=== PATIENT | male | born 1990 | race Two or more races ===

== ENCOUNTER → 2021-02-19 12:30 | Outpatient (BNVA) | payer OTHER, SELFPAY | PROVIDERS: PCP Internal Medicine; Visit Provider Physician Assistant ==

== ENCOUNTER 2021-03-14 14:22 | Outpatient (REF) | payer OTHER, SELFPAY ==
[2021-03-15 14:57] LABS: H Pylori Breath Test NOT DETECTED (NOT DETECTED)
== END 2021-03-14 14:23 | disposition home or self-care (01) ==
LOC: HO.LNP 14:22
PROVIDERS: PCP Internal Medicine; Referring Provider Internal Medicine; Visit Provider Physician Assistant
DX: E66.01 Morbid (severe) obesity due to excess calories (principal); Z11.0 Encounter for screening for intestinal infectious diseases; Z71.3 Dietary counseling and surveillance; Z68.42 Body mass index [BMI] 45.0-49.9, adult
CPT/HCPCS: 83013

== ENCOUNTER 2021-03-24 10:39 | Outpatient (REF) | payer OTHER, SELFPAY ==
--- NOTE | ~2021-03-24 | XR_ITS ---
EXAMINATION: XR CHEST CLINICAL INFORMATION: Severe morbid obesity COMPARISON: None TECHNIQUE: 2 views of the chest were obtained. FINDINGS: No significant abnormality is noted involving the heart, lungs, mediastinum, bony thorax or soft tissues. XR/XR chest 2V IMPRESSION: No acute disease.
--- NOTE | 2021-03-24 10:46 | ECG_ITS ---
Test Reason : MORBID OBESITY Blood Pressure : / mmHG Vent. Rate : 053 BPM Atrial Rate : 053 BPM P-R Int : 156 ms QRS Dur : 116 ms QT Int : 434 ms P-R-T Axes : 039 027 039 degrees QTc Int : 407 ms Sinus bradycardia with sinus arrhythmia Otherwise normal ECG No previous ECGs available Referred By: Patricia Reynolds Electronically Signed By:SUSY MONTERO MD
[2021-03-24 11:23] LABS: MANUAL DIFF FLAG NO
[2021-03-24 11:29] LABS: Basophils Absolute Auto 0.1 X10*3/uL (0.0-0.2); Basophils Percent Auto 0.8 % (0-2); Eosinophils Absolute Auto 0.2 X10*3/uL (0.0-0.4); Eosinophils Percent Auto 2.9 % (0-4); Hematocrit 47.3 % (42-52); Imm Gran Abs Auto 0.02 X10*3/uL (0.00-0.03); Imm Gran Pct Auto 0.3 % (0.0-0.4); Lymphocytes Absolute Auto 2.5 X10*3/uL (1.2-4.9); Lymphocytes Percent Auto 38.5 % (20-40); Mean Corpuscular HGB Conc 31.7 g/dl (31.0-36.0); Mean Corpuscular Hemoglobin 27.5 pg (27.0-33.0); Mean Corpuscular Volume 86.6 fL (80-98); Mean Platelet Volume 10.7 fL (9.4-12.4); Monocytes Absolute Auto 0.4 X10*3/uL (0.1-1.2); Monocytes Percent Auto 6.3 % (2-11); Neutrophils Absolute Auto 3.4 X10*3/uL (2.0-8.3); Neutrophils Percent Auto 51.2 % (45-73); Platelet Count 246 X10*3/uL (160-400); Red Blood Count 5.46 X10*6/uL (4.60-5.80); Red Cell Distribution Width 13.3 % (11.0-16.0); White Blood Count 6.5 X10*3/uL (4.8-10.8)
[2021-03-24 12:03] LABS: Alanine Aminotransferase 100 U/L (0-40); Albumin Level 4.8 g/dL (3.5-5.0); Alkaline Phosphatase 51 U/L (39-117); Anion Gap 10 (12-20); Aspartate Amino Transferase 56 U/L (5-37); Blood Urea Nitrogen 14 mg/dL (9-16); C Reactive Protein 0.13 mg/dL (< or = 0.50); Calcium 9.9 mg/dL (8.4-10.2); Carbon Dioxide 30 mmol/L (22-29); Chloride 107 mmol/L (96-108); Cholesterol 166 mg/dL; Estimated Glomerular Filt Rate > 60; Glucose Random 100 mg/dL (60-115); HDL Cholesterol 44 mg/dL; Iron 90 mcg/dL (45-160); LDL Cholesterol Calculated 99 mg/dl; Percent Iron Saturation 24 % (15-50); Potassium 4.6 mmol/L (3.3-5.1); Sodium 142 mmol/L (135-145); Total Iron Binding Capacity 371 mcg/dL (228-428); Total Protein 7.6 g/dL (6.5-8.0); Triglycerides 116 mg/dL; Unsaturated Iron Binding 281 ug/dL
[2021-03-24 12:08] LABS: Ferritin 217 ng/mL (20-250); TSH reflex Free T4 0.94 uIU/mL (0.32-4.0); Vitamin D 25-OH Total 16.4 ng/mL (>30)
[2021-03-24 12:17] LABS: Folate 10.4 ng/mL (> or = 4.0); Vitamin B12 250 pg/mL (200-900)
[2021-03-25 13:16] LABS: Calcium (PTHI) 10.2 mg/dL (8.6-10.3); PTHI 45 pg/mL (14-64)
[2021-03-25 21:26] LABS: Insulin Level Total 15.8 uIU/mL
[2021-03-26 16:56] LABS: Zinc 71 mcg/dL (60-130)
[2021-03-27 21:47] LABS: Vitamin A 51 mcg/dL (38-98)
[2021-03-28 12:46] LABS: Vitamin B1 9 nmol/L (8-30)
== END 2021-03-24 10:40 | disposition home or self-care (01) ==
LOC: HO.XRAY 10:39
PROVIDERS: PCP Internal Medicine; Visit Provider Physician Assistant
DX: E66.01 Morbid (severe) obesity due to excess calories (principal)
CPT/HCPCS: 36415; 71046; 80053; 80061; 82306; 82607; 82728; 82746; 83525; 83540; 83970; 84425; 84443; 84590; 84630; 85025; 86140; 93005

== ENCOUNTER 2021-04-10 09:23 | Outpatient (REF) | payer OTHER, SELFPAY ==
--- NOTE | ~2021-04-10 | US_ITS ---
EXAMINATION: US COMPLETE ABDOMEN WITH LIVER ELASTOGRAPHY CLINICAL INFORMATION: Moderate/severe obesity due to excess calories. COMPARISON: None. TECHNIQUE: Real-time imaging of the abdominal viscera. Noninvasive ultrasound liver fibrosis assessment is performed using Denilson ElastPQ point quantification shear wave elastography (pSWE) with a C5-2 MHz transducer. Multiple elastography samples are obtained. FINDINGS: PANCREAS: The visualized pancreatic head and body are normal in appearance. The remainder of the pancreas is obscured from visualization by the overlying bowel gas. ABDOMINAL AORTA: The proximal, middle, and distal aortic segments are normal in caliber. INFERIOR VENA CAVA: Visualized portions are normal. LIVER: Normal. The liver demonstrates normal size, contour and increased echogenicity. No focal lesion or intrahepatic biliary duct dilatation. The right lobe measures 17.7 cm in length. The left lobe measures 13.5 cm in length. Portal flow is hepatopedal. Shear wave liver elastography median stiffness is 1.60 m/s (reference: normal median stiffness is 1.3 m/s or less). IQR/median stiffness to assess sampling precision is 0.08 (reference: good quality data set is IQR/median stiffness of 0.15 or less). GALLBLADDER: Normal. The gallbladder is physiologically distended without evidence of stones, sludge, polyps, wall thickening or pericholecystic fluid. COMMON BILE DUCT: Normal in caliber measuring 0.3 cm in diameter. RIGHT KIDNEY: Normal. No hydronephrosis. No renal calculi or focal parenchymal lesions. The kidney measures 12.2 cm in maximum dimension. LEFT KIDNEY: Normal. No hydronephrosis. No renal calculi or focal parenchymal lesions. The kidney measures 12.3 cm in maximum dimension. SPLEEN: Normal. The spleen measures 13.6 cm in maximum dimension. FREE FLUID: None. US/US abdomen comp w elastography IMPRESSION: 1. Mild hepatic steatosis without focal lesion. The rest of the abdominal ultrasound is unremarkable. 2. Liver elastography: Mediastinitis 1.60 suggestive of cACLD ruled out. REFERENCE: Society of Radiologists in Ultrasound Liver Stiffness Thresholds (2019): LIVER STIFFNESS THRESHOLDS: *Liver Stiffness equal or less than 1.3 m/s: High probability of being normal. *Liver Stiffness less than 1.7 m/s: In the absence of other known clinical signs, rules out compensated advanced chronic liver disease. *Liver Stiffness 1.7-2.1 m/s: Suggestive of compensated advanced chronic liver disease but need further test for confirmation. *Liver Stiffness over 2.1 m/s: Rules in compensated advanced chronic liver disease. *Liver Stiffness over 2.4 m/s: Suggestive of clinically significant portal hypertension. QUALITY OF DATA SET: *IQR/Median value equal or less than 0.15 implies a quality data set. *IQR/Median value over 0.15 implies a poor quality data set. SIGNIFICANT CHANGE FROM PRIOR EXAM: Significant change if liver stiffness measurement is 10% or greater from prior exam. OTHER CONSIDERATIONS: The stage of liver fibrosis may be overestimated in the setting of acute hepatitis, liver inflammation, elevated liver function tests, hepatic vascular congestion, obstructive cholestasis, non-fasting state, and infiltrative diseases such as amyloidosis and lymphoma. In some patients with NAFLD, the liver stiffness thresholds for compensated advanced chronic liver disease may be lower. In causes other than viral hepatitis and NAFLD, liver stiffness thresholds are not well established.
--- NOTE | ~2021-04-10 | FL_ITS ---
EXAMINATION: XR GI SERIES CLINICAL INFORMATION: Morbid/severe obesity due to excess calories. COMPARISON: None. TECHNIQUE: Routine upper GI air-contrast study was performed upright and lying position. FINDINGS: Following oral administration of thick barium and effervescent granules, there is normal propagation of bolus from the oral cavity through the pharynx and esophagus and into the stomach without any evidence of obstruction, narrowing or stricture. On placing patient supine and prone, the course, caliber and peristalsis of the stomach, duodenal bulb and duodenal sweep are normal. No gastroesophageal reflux or hiatal hernia seen. FLUOROSCOPY TIME: 1.9 minutes. DOSE AREA PRODUCT: 62.0 uGy-m2 (microgray-meter squared). FL/FL upper GI series IMPRESSION: Unremarkable upper GI air-contrast study.
== END 2021-04-10 09:24 | disposition home or self-care (01) ==
LOC: HO.US 09:23
PROVIDERS: PCP Internal Medicine; Visit Provider Surgery
DX: Z01.818 Encounter for other preprocedural examination (principal); E66.01 Morbid (severe) obesity due to excess calories; K21.9 Gastro-esophageal reflux disease without esophagitis
CPT/HCPCS: 74240; 76705; 76981

== ENCOUNTER → 2021-04-16 07:23 | Outpatient (BNVA) | payer OTHER, SELFPAY | PROVIDERS: PCP Internal Medicine; Visit Provider Surgery ==

== ENCOUNTER → 2021-04-25 07:48 | Outpatient (BNVA) | payer OTHER, SELFPAY | PROVIDERS: PCP Internal Medicine; Visit Provider Dietitian, Registered | DX: E66.9 Obesity, unspecified (principal); Z68.42 Body mass index [BMI] 45.0-49.9, adult | CPT/HCPCS: 97802 ==

== ENCOUNTER → 2021-05-28 07:20 | Outpatient (BNVA) | payer OTHER, SELFPAY | PROVIDERS: PCP Internal Medicine; Visit Provider Surgery ==

== ENCOUNTER → 2021-06-10 08:17 | Outpatient (BNVA) | payer OTHER, SELFPAY | PROVIDERS: PCP Internal Medicine; Referring Provider Internal Medicine; Visit Provider Dietitian, Registered | DX: E66.01 Morbid (severe) obesity due to excess calories (principal); Z68.42 Body mass index [BMI] 45.0-49.9, adult | CPT/HCPCS: 97803 ==

== ENCOUNTER → 2021-07-25 08:19 | Outpatient (BNVA) | payer OTHER, SELFPAY | PROVIDERS: PCP Internal Medicine; Visit Provider Surgery ==

== ENCOUNTER 2022-08-18 09:35 | Inpatient (IN) | payer BC, SELFPAY ==
[2022-08-12 13:30] VITALS: BMI 45.8
[2022-08-14 15:50] LABS: MANUAL DIFF FLAG NO
[2022-08-14 16:49] LABS: Basophils Percent Auto 0.3 % (0-2); Eosinophils Absolute Auto 0.1 X10*3/uL (0.0-0.4); Eosinophils Percent Auto 0.8 % (0-4); Hematocrit 42.2 % (42.0-52.0); Hemoglobin 13.7 g/dl (14.0-18.0); Imm Gran Abs Auto 0.03 X10*3/uL (0.00-0.03); Imm Gran Pct Auto 0.3 % (0.0-0.4); Lymphocytes Absolute Auto 3.4 X10*3/uL (1.2-4.9); Lymphocytes Percent Auto 38.1 % (20-40); Mean Corpuscular HGB Conc 32.5 g/dl (31.0-36.0); Mean Corpuscular Hemoglobin 28.2 pg (27.0-33.0); Mean Platelet Volume 11.3 fL (9.4-12.4); Monocytes Absolute Auto 0.6 X10*3/uL (0.1-1.2); Monocytes Percent Auto 6.7 % (2-11); Neutrophils Absolute Auto 4.7 x10*3/uL (2.0-8.3); Neutrophils Percent Auto 53.8 % (45-73); Platelet Count 247 X10*3/uL (160-400); Red Blood Count 4.85 X10*6/uL (4.60-5.80); Red Cell Distribution Width 13.5 % (11.0-16.0); White Blood Count 8.8 X10*3/uL (4.8-10.8)
[2022-08-14 16:55] LABS: Estimated Average Glucose 103 mg/dL; Hemoglobin A1c % 5.2 %
[2022-08-14 17:01] LABS: INTERNATIONAL NORM RATIO 1.1 (0.9-1.1); Prothrombin Time 13.2 SEC (10.0-13.1)
[2022-08-14 17:04] LABS: Partial Thromboplastin Time 40.9 SEC (26.0-36.4)
[2022-08-14 17:54] LABS: Alanine Aminotransferase 101 U/L (0-40); Albumin Level 4.9 g/dL (3.5-5.0); Alkaline Phosphatase 57 U/L (39-117); Anion Gap 17 (12-20); Aspartate Amino Transferase 81 U/L (5-37); Bilirubin Total 1.8 mg/dL (0.0-1.0); Blood Urea Nitrogen 15 mg/dL (9-16); C Reactive Protein 0.39 mg/dL (< or = 0.50); Carbon Dioxide 25 mmol/L (22-29); Chloride 103 mmol/L (96-108); Cholesterol 163 mg/dL; Creatinine Clr Calc Pharmacy 174.7; Estimated Glomerular Filt Rate > 60; Glucose Random 74 mg/dL (60-115); HDL Cholesterol 49 mg/dL; Insulin 8 uU/mL (2-29); LDL Cholesterol Calculated 101 mg/dl; Potassium 4.4 mmol/L (3.3-5.1); Sodium 141 mmol/L (135-145); TSH reflex Free T4 1.65 uIU/mL (0.32-4.0); Total Protein 7.8 g/dL (6.5-8.0); Triglycerides 69 mg/dL
--- NOTE | 2022-08-15 14:28 | P.HPSUR_ITS ---
Pre-Procedural Eval Section A Date of Service: 08/15/22 The patient is an INPATIENT: Yes The History & Physical has been completed within 30 days and I have reviewed it.: Yes Section B Chief Complaint: Morbid (severe) obesity due to excess calories Relevant Family History (Specify if Yes): No Relevant Social History: None Present Medications: None Medical History: No relevant PMH History of Previous Operations: No relevant previous surgery Allergies: Allergies Allergy/AdvReac Type Severity Reaction Status Date / Time No Known Allergies Allergy Verified 08/12/22 11:56 Review of Systems Sugical H&P ROS: Negative: Constitution, Cardiovascular, Respiratory, Neurological, Psychiatric, Hem-Onc, Allergic/Immunologic, Gastrointestinal, Genitourinary, Musculoskeletal, Integumentary, Endocrine and Eyes/Ears/No se/Throat Exam Surgical H&P Exam: Normal: HEENT, Normal: Heart, Normal: Lungs, Normal: Extremities, Normal: Abdomen, Normal: Skin and Normal: Neurological Plan Diagnosis/Plan: Unchanged I have reviewed the history and physical and performed a pertinent physical examination on my patient. No changes have occurred unless specified.
--- NOTE | 2022-08-17 09:48 | HO.ANESPROP2 ---
Documented by User: Shyann Brenner NP 08/17/22 09:49 HPI - Anesthesia Eval Consult details Narrative: 32yo M for Gastrectomy Sleeve,EGD,Possible diaphragmatic hernia,Possible ventral hernia,possible open PMFSH Active Problems Active Problems: All Active Problems (Updated 08/12/22 @ 13:19 by Marisabel Ramos RN) Morbid obesity (Acute) Adjustment disorder, unspecified (Acute) Vitamin B 12 deficiency (Acute) Vitamin D deficiency (Acute) Past Medical History Medical History History of snoring Obese Family History Family History Mother No problems noted. Father No problems noted. Brother No problems noted. Daughter Asthma Daughter No problems noted. Surgical History Surgical History No history of previous surgery Social History Social History Are you a primary healthcare administrative assistant to a significant other at home: No Do you presently have visiting nurse or other home services: No Alcohol intake: current Alcohol intake frequency: a few times a month Patient Tobacco Use Status: Never used Tobacco Second Hand Smoke Exposure: No Use of substances other than those prescribed or required for medical reasons: No Have you been hit, kicked, punched, or otherwise hurt by someone within the past year? If so, by whom?: No Are you DNR?: No Advance Directives: No Advance Directives Information Provided: Yes (Mailed w/ pre op instructions) Advance Directives on File: No Recently lost weight without trying: No How much weight loss: 24-33 pounds Eating poorly because of decreased appetite: No Nutrition screen score: 3 Nutrition Risks: No Nutritional Risk Poor oral hygiene: No (Intact teeth) Meds Allergies Allergy/AdvReac Type Severity Reaction Status Date / Time No Known Allergies Allergy Verified 08/18/22 09:36 Exam Exam Date and Time: August 17, 2022 0948 Height,Weight and Vital Signs: Height 6 ft 0.5 in Weight 155.299 kg Pertinent Lab Results Pertinent Lab Results: Laboratory Tests 08/14/22 08/14/22 08/14/22 15:45 15:49 15:49 WBC 8.8 RBC 4.85 Hgb 13.7 L Hct 42.2 MCV 87.0 MCH 28.2 MCHC 32.5 RDW 13.5 Plt Count 247 MPV 11.3 Immature Gran % (Auto) 0.3 Neut % (Auto) 53.8 Lymph % (Auto) 38.1 [place] % (Auto) 6.7 Eos % (Auto) 0.8 Baso % (Auto) 0.3 Lymph # (Auto) 3.4 [place] # (Auto) 0.6 Eos # (Auto) 0.1 Baso # (Auto) 0.0 Abs Immat Gran (auto) 0.03 Absolute Neuts (auto) 4.7 Absolute Nucleated RBC 0.000 Nucleated RBC % (auto) 0.0 PT 13.2 H INR 1.1 APTT 40.9 H Sodium Potassium Chloride Carbon Dioxide Anion Gap BUN Creatinine Estim Creat Clear Calc Estimated GFR Random Glucose Estimat Average Glucose Hemoglobin A1c % Insulin Level Calcium Total Bilirubin AST ALT Alkaline Phosphatase C-Reactive Protein Total Protein Albumin Triglycerides Cholesterol LDL Cholesterol, Calc HDL Cholesterol TSH Blood Type O Positive Antibody Screen NEGATIVE 08/14/22 08/14/22 15:49 15:49 WBC RBC Hgb Hct MCV MCH MCHC RDW Plt Count MPV Immature Gran % (Auto) Neut % (Auto) Lymph % (Auto) [place] % (Auto) Eos % (Auto) Baso % (Auto) Lymph # (Auto) [place] # (Auto) Eos # (Auto) Baso # (Auto) Abs Immat Gran (auto) Absolute Neuts (auto) Absolute Nucleated RBC Nucleated RBC % (auto) PT INR APTT Sodium 141 Potassium 4.4 Chloride 103 Carbon Dioxide 25 Anion Gap 17 BUN 15 Creatinine 0.95 Estim Creat Clear Calc 174.7 Estimated GFR > 60 Random Glucose 74 Estimat Average Glucose 103 Hemoglobin A1c % 5.2 Insulin Level 8 Calcium 10.0 Total Bilirubin 1.8 H AST 81 H ALT 101 H Alkaline Phosphatase 57 C-Reactive Protein 0.39 Total Protein 7.8 Albumin 4.9 Triglycerides 69 Cholesterol 163 LDL Cholesterol, Calc 101 HDL Cholesterol 49 TSH 1.65 Blood Type Antibody Screen Narrative Narrative: EKG 02/2021 Vent. Rate : 053 BPM ? ? Atrial Rate : 053 BPM ?? P-R Int : 156 ms? QRS Dur : 116 ms ? ? QT Int : 434 ms ? ? ? P-R-T Axes : 039 027 039 degrees ?? QTc Int : 407 ms ? Sinus bradycardia with sinus arrhythmia Otherwise normal ECG No previous ECGs available Assessment and Plan Assessment Anesthesia Assessment: Chart Reviewed Documented by User: Albina Hannah MD 08/18/22 10:40 [facility] Past Medical History Medical History History of snoring Obese Family History Family History Mother No problems noted. Father No problems noted. Brother No problems noted. Daughter Asthma Daughter No problems noted. Surgical History Surgical History No history of previous surgery History of Problems with Anesthesia: No Social History Social History Are you a primary healthcare administrative assistant to a significant other at home: No Do you presently have visiting nurse or other home services: No Alcohol intake: current Alcohol intake frequency: a few times a month Patient Tobacco Use Status: Never used Tobacco Second Hand Smoke Exposure: No Use of substances other than those prescribed or required for medical reasons: No Have you been hit, kicked, punched, or otherwise hurt by someone within the past year? If so, by whom?: No Are you DNR?: No Advance Directives: No Advance Directives Information Provided: Yes (Mailed w/ pre op instructions) Advance Directives on File: No Recently lost weight without trying: No How much weight loss: 24-33 pounds Eating poorly because of decreased appetite: No Nutrition screen score: 3 Nutrition Risks: No Nutritional Risk Poor oral hygiene: No (Intact teeth) Meds Allergies Allergy/AdvReac Type Severity Reaction Status Date / Time No Known Allergies Allergy Verified 08/18/22 09:36 Exam Airway Mallampati Class: III TM Dist: >3cm Neck ROM: Full Loose/Missing/Broken Teeth: No Heart: RRR Lungs: CTA Assessment and Plan Final Anesthetic Review History of Problems with Anesthesia: No NPO: Yes ASA Class: III Final Preanesthetic Review: Meds/Allgs Chart Reviewed, Consent Obtained/Reviewed and Anes Risks/Benef Reviewed Patient Risk: Intermediate Procedure Risk: Intermediate Anesthetic Plan Anesthetic Plan: GA Disposition: Standard PACU
[2022-08-17 13:16] LABS: COVID-19 Test Negative (Negative); IDNOW Serial# BCCEAD1C
[2022-08-18] VITALS (15 sets, daily range): BP systolic 118–157; BP diastolic 62–87; PULSE 50–75; RESP 16–20; TEMP 36.2–37.3; O2SAT 94–100
--- OUTSIDE RECORDS SUMMARY | 2022-08-18 09:44 | XMS_ITS ---
:1990 Author Care Team Providers Name Role Phone MCKENNA WALKER MD Primary Care Provider [phone] Allergies Code Code System Name Reaction Severity Status Onset NKDA ? Medications Name Status Start Date Stop Date ? ? vitamin B complex and vit C no.3 15 mg-10 mg-50 mg-5 mg-300 mg c apsule Active ? Not available Take by oral route. Vitamin D Active ? Not available Problems None recorded. Procedures None recorded. Results Lab Results Date Name Specimen Result Interpretation Description Value Range Status Address ? 09/07/2021 Urinalysis, ? Color yellow ? ? [place] [facility] [place] [address], [place] ? ? ? Appearance clear ? ? [place] [facility] [place] [address], [place] ? ? ? Glucose Negative ? ? Byst U [place]: [address], [place] ? ? ? Bilirubin Negative ? ? [place] [facility] [place] [address], [place] ? ? ? Specific 1.030 ? ? Byst [place] : [address], [place] ? ? ? Blood Hemolyzed ? ? Byst c Trace [place]: [address], [place] ? ? ? Ketone Negative ? ? Byst [facility] [place]: [address], [place] ? ? ? Ph 6.0 ? ? [place] [facility] [place] [address], [place] ? ? ? Protein Negative ? ? Byst U [place]: [address], [place] ? ? ? Urobilinogen 0.2-Normal ? ? [place] [facility] [place] [address], [place] ? ? ? Nitrite negative ? ? Byst U [place]: [address], [place] ? ? ? Leukocytes Negative ? ? [place] [facility] [place] [address], [place] 09/07/2021 Visual Acuity* ? R Eye Corrected 20/20 ? ? [place] [facility] [place] [address], [place] ? ? ? L Eye Corrected 20/25 ? ? [place] [facility] [place] [address], [place] ? ? ? Both Eyes 20/15 ? ? 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 Social History Tobacco Smoking Status Never Smoker Vaccine List Vaccine Type COVID-19, mRNA, LNP-S, PF, 30 mcg/0.3 mL dose ([place]) 02/13/2021 03/08/2021 DTaP 1992 1992 1992 01/09/1994 09/10/1997 Hep B, adolescent or pediatric 1992 1992 06/11/1993 Hep B, unspecified formulation 03/27/2017 Hib (HbOC) 1992 1992 1992 09/10/1993 influenza, live, intranasal 07/06/2007 influenza, seasonal, injectable 07/08/2009 07/07/2010 06/02/2011 meningococcal MCV4P 01/25/2008 MMR 09/10/1993 09/10/1997 03/27/2017 novel [id number], preservative-fr ee 09/18/2009 OPV 1992 1992 01/09/1994 09/10/1997 Td (adult), adsorbed 06/01/2003 Tdap 04/10/2009 varicella 06/11/1996 04/22/2010 Plan of Care Reminders Provider Appointments None recorded. ? ? Lab None recorded. ? ? Referral None recorded. ? ? Procedures None recorded. ? ? Surgeries None recorded. ? ? Imaging None recorded. ? ? Vitals Height Weight BMI Blood Pressure 6 ft 3 in 347 lbs 16 oz 43.5 kg/m2 122/87 mm[Hg]
[2022-08-18] MEDS: Lactated Ringers 1,000 ML 100 ML IVCONT ×3 (09:56→23:42)
[2022-08-18] MEDS: Lactated Ringers 1,000 ML 999 ML IV (09:56)
--- NOTE | 2022-08-18 10:25 | P.BOP_ITS ---
Brief Operative Note Date of Service: 08/18/22 Pre-op diagnosis: Morbid obesity with comorbidities (see below) Post-op diagnosis: same Procedure: INITIAL PATIENT BMI ON PRESENTATION AT OUR OFFICE: 45.9 kg/m2 LAST BMI BEFORE SURGERY: 44.4 kg/m2 COMORBIDITIES: liver steatosis, liver fibrosis ?The patient presented to the Weight Management Program with significant obesity that was negatively impacting the patient's comorbidities as listed above.? The program is a phased program with a special focus on preoperative medical weight management to promote substantial weight loss and prepare the patients for the second phase of the program: bariatric surgery. The patient participated in an intensive weekly lifestyle ?intervention and exercise program during which the patient ?has lost between the initial office visit and the last preoperative visit 24.6lbs, or 6.7% of initial actual body weight. It was deemed appropriate for the patient to now have bariatric surgery. In light of the current Covid-19 pandemic and the well documented strong association of obesity and increased risk of worse outcomes if infected with Covid-19 (REFERENCES: https://pubmed.ncbi.nlm.nih.gov/83585850/ ,? https://pubmed.ncb i.nlm.nih.gov/77263827/ ), any delay in undergoing bariatric surgery may lead to the patient's worsening health condition and increased?risk of more severe Covid-19 disease if infected. In addition a recent?study from [facility] published in [employer] on 09/22/2021 ([email or web address]) found that, among patients with obesity, substantial weight loss achieved with surgery was associated with improved outcomes of COVID-19 infection. The findings suggest that obesity can be a modifiable risk factor for the severity of COVID-19 infection. In addition, the patient met the BMI-criteria for bariatric surgery based on the BMI on initial presentation. The patient should not be penalized for achieving such weight loss because ?it is not sustainable long-term without surgical intervention and it was achieved in preparation for bariatric surgery ?under my direction and based on my published research (file :///[email or web address]:/[email or web address]).pdf and? https://www.soard.org/article/[email or web address](87)60923-X/pdf ) ?that a 10% preoperative weight loss improves long-term weight loss after surgery and reduces perioperative complications.? Insurance carriers such as [facility] have endorsed my recommendations ?and have included in their policies criteria to include a 10% preoperative weight loss requirement. PROCEDURE: Esophago-gastroscopy,, laparoscopic sleeve gastrectomy and laparoscopic gastropexy INDICATIONS: This is a 32 year-old male who was electively scheduled for l aparoscopic, possibly open sleeve gastrectomy. The risks and complications of the procedure were discussed with the patient in advance, particularly the possibility of ; pulmonary embolism; staple line leak; bleeding; GERD; cardiac, pulmonary, or renal complications; as well as long-term problems such as insufficient weight loss, vitamin deficiency, strictures, or ulcers. The patient understood all the risks, and was in agreement to proceed with surgery. DESCRIPTION OF PROCEDURE: After informed consent was obtained from the patient, the patient was given preoperative antibiotics, and was transferred to the operating room. After successful induction of general anesthesia, pneumatic compression devices were placed on both lower extremities. An upper endoscopy was performed next. The oropharynx and esophagus appeared to be within normal limits. There was no diaphragmatic hernia present consistent with the findings of the preoperative upper GI. The stomach was entered. Then after all fluid and air were suctioned and the stomach was fully decompressed, the scope was withdrawn and secured in the mid esophagus. The patient was then prepped and draped in the usual sterile manner, and abdominal access was established at the right upper quadrant with the Nidia technique. A 12 mm blunt port was inserted, and the abdomen was insufflated with CO2 to a pressure of 15 mmHg. Under direct visualization, additional ports were placed, specifically two 5 mm Versi-step ports to the left upper quadrant, and a 5 mm Versi-Step port to the right upper quadrant. 1% lidocaine plain was used to infiltrate all port sites as well as all fascia defects. Using the EndoClose suture passer device, I placed a #1 Polysorb tie across the falciform ligament in order to retract it up against the abdominal wall and prevent injury of the ligament with our instruments during the procedure. Following that, the patient was placed in a steep reverse Trendelenburg position. An additional 5 mm port was placed to the right flank for the Mediflex retractor that was used to retract the left lobe of the liver. The gastro-esophageal fat pad was opened with the ultrasonic device (Thunderbeat, Olympus) and the anterior esophagus and hiatus were exposed. The angle of His was opened with the ultrasonic device the fundus of the stomach from any diaphragmatic and splenic attachments. I then opened the gastrocolic ligament between the transverse colon and the greater curvature of the stomach with the ultrasonic device to enter the lesser sac and facilitate the ligation of the short gastric vessels. I started at a mid-point along the greater curvature and using the Thunderbeat, all short gastric vessels were divided all the way to the angle of His until the left karine was completely dissected at its entirety. I then divided the gastro-colic ligament distally to a distance of about 3-4 cm proximal to the pylorus. There were extensive congenital adhesions between the pancreas and posterior gastric wall. Those were lysed completely with the ultrasonic device. Adhesiolysis took approximately 45 min to complete. The stomach was then divided transversely with one Endo ZAIRE-45 purple, one ZAIRE- 45 orange load and three ZAIRE-60 articulating orange loads using the AEON stapler and loads. Every effort was made that the gastric sleeve had a tubular shape and an even caliber throughout. Once the sleeve resection was completed, the staple line of the gastric sleeve was reinforced with Hemoclips. The resected stomach was retrieved without difficulty from the Nidia port. A gastropexy was then performed in order to prevent postoperative GERD and partial gastric volvulus. Several interrupted 2.0 Surgidac sutures were placed between the sleeve's staple line and the previously divided greater omentum and gastro-colic ligament using the Endo-Stitch device. ?An upper endoscopy was performed. There was no narrowing at the GE junction. The scope was easily advanced all the way to the pylorus which was clearly visualized. There was no narrowing anywhere and the sleeve's caliber was even throughout. The sleeve's staple line was inspected and there was no evidence of ischemia, bleeding or dehiscence. At that point the gastroscope was withdrawn from the patient?s mouth while we were decompressing the bowel and the stomach from any remaining air. I looked into the lesser sac to see how the sleeve was situating and it was situating well. There was no bleeding from the staple line, spleen, or short gastric vessels. The Mediflex retractor was removed, and the undersurface of the liver was inspected and there was no bleeding. The patient was placed in supine position. I closed the fascial defect of the 12 mm port site with a figure of eight #1 Polysorb suture. Then 30cc of Ropivacaine plain with 10 mg of Dexamethasone were used to infiltrate the fascial closure as well as all skin incisions. A total of 7ml of Zynrelef was applied in the Nidia wound. At this point, the abdomen was deflated, all ports were removed under direct vision, and no bleeding was noted from any of the port sites. The skin incisions were irrigated with saline and were closed with 4-0 absorbable monofilament sutures. Steri-Strips and OpSites were used to cover all incisions. The patient was extubated and was transferred in stable condition to the recovery room for further care. I was present and performed all young parts of the procedure. Ms. Reynolds was the chemistry research assistant. There were no residents to assist with this case. Chadwick Peterson MD, PhD, FACS Surgeon: Emile Peterson MD Anesthesia: GETA, local and other (TAP block and 7ml of Zynrelef) Was an Men'S Designer used for this Procedure?: No Men'S Designer: Patricia Reynolds Estimated blood loss (mL): 10 IV fluids (mL): 1,500 Urine output (mL): 0 (No Dickey to record output) Pathology: other (Stomach) Condition: stable Disposition: PACU
--- NOTE | 2022-08-18 10:28 | PM.PNGS ---
Subjective Subjective Date of Service: 08/19/22 Interval history: Patient has mild incisional pain, but was able to ambulate and use the incentive spirometer. He is tolerating phase 1 bariatric diet Physical Exam Vital Signs: Vital Signs: Last Vital Signs Temp 97.3 F 08/18/22 10:05 Pulse 68 08/18/22 10:05 Resp 18 08/18/22 10:05 BP 127/76 08/18/22 10:05 Pulse Ox 98 08/18/22 10:05 O2 Del Method 08/18/22 10:05 BMI result Body Mass Index 45.8 GI: Inspection: Yes normal to inspection, Yes incision (clean, dry and intact) and Yes obesity Palpation (GI): Soft to palpation Extrem: Right lower extremity: normal to inspection (no calf tenderness) Left lower extremity: normal to inspection (no calf tenderness) Objective Data Active Medications Lactated Ringer's (Lr) 1,000 mls @ 100 mls/hr IVCONT .Q10H PABLO Last Admin: 08/18/22 09:56 Dose: 100 mls/hr Documented By: SABINO Lactated Ringer's (Lr) 1,000 mls @ 999 mls/hr IV .Q1H1M PABLO Stop: 08/18/22 11:45 Last Admin: 08/18/22 09:56 Dose: 999 mls/hr Documented By: SABINO Labs CBC & Chem 7: 08/19/22 05:59 08/19/22 05:59 Labs: Laboratory Results - last 24 hr 08/17/22 12:54 COVID-19 (JUHI) Negative COVID-19 Clin Com See Note Procedures Date of Service Date of Service: 08/19/22 Progress Note: A&P Assessment and plan (1) Morbid obesity: Status: Acute Assessment and Plan: s/p laparoscopic sleeve gastrectomy, lysis of adhesions and gastropexy Doing well Check am labs. If OK, will discharge home (2) Steatosis, liver: Status: Acute (3) Liver fibrosis: Status: Acute (4) S/P laparoscopic sleeve gastrectomy: Status: Acute (5) Congenital intra-abdominal adhesions: Status: Acute Time Spent With Patient Time: Total time spent is greater than 50% in coordination of care (as documented) at patient's floor/unit and/or counseling patient: Quality Stroke Does the patient have a stroke diagnosis?: No VTE Prior VTE?: No VTE Risk Level:: Surgical - moderate VTE Device Contraindication: N/A - Device Ordered VTE Drug Contraindication: Treatment Not Indicated
--- NOTE | 2022-08-18 10:33 | PC.NURSE ---
IV attempt by author. Insertion by Danielle Guzman RN
--- NOTE | 2022-08-18 13:09 | PM.DS ---
DS: Providers Provider Date of Service: 08/19/22 Date of admission: 08/18/22 09:35 Primary care physician: Pravin Lucero III, MD DS: Diagnosis Discharge Diagnosis (1) Morbid obesity: Status: Acute (2) Steatosis, liver: Status: Acute (3) Liver fibrosis: Status: Acute DS: Summary Hospital Course Hospital Course: ADMITTING DIAGNOSIS: morbid obesity DISCHARGE DIAGNOSIS: same, s/p laparoscopic sleeve gastrectomy PAST SURGICAL HISTORY: none PROCEDURE: upper endoscopy, laparoscopic sleeve gastrectomy DISCHARGE SUMMARY: History of Present Illness: The patient is a 32 year-old man with a BMI of 46.5 kg/m2 and associated co-morbidities as described above. The patient had extensive work-up, lost 24.6 lbs preoperatively and was electively scheduled for laparoscopic, possible open sleeve gastrectomy and gastropexy. Risks and complications of the surgery were discussed with the patient in advance, particularly the possibility of , pulmonary embolism, anastomotic leak, bleeding, bowel injury, GERD, cardiac, renal or pulmonary complications. The patient understood all the risks and was in agreement with the surgical plan. Hospital Course: The patient underwent an uneventful laparoscopic sleeve gastrectomy with gastropexy on the day of admission. Postoperatively, the patient was transferred to the surgical floor. The patient received IV Acetaminophen and IV dilaudid for pain control. Patient was started on bariatric phase 1 diet POD #0. On postoperative day one, the patient was feeling well without nausea, vomiting, fevers, or tachycardia. The patient had some mild incisional pain and the abdomen was soft. On the morning of postoperative day one, the patient was continued on 1 ounce of water or ice every half hour. During the day, the patient did fairly well, having some incisional pain, but able to ambulate adequately and to tolerate liquids well. Since the patient is doing well, we decided that the patient was ready to be discharged. The patient was given instructions to follow-up with me next week and to call my office for any fever over 101, persistent abdominal pain, nausea, vomiting, GERD, symptoms of DVT such as calf tenderness, or leg swelling, or pulmonary embolism such as chest pain or shortness of breath. The patient was also instructed to drink 40-60 ounces of liquids per day using the 1-ounce cups. The patient had been given prescriptions for Tylenol for pain, Zofran prn for nausea, and pantoprazole and carafate previously. The patient was encouraged to ambulate and use the incentive spirometer. The patient was allowed to shower, but no baths, and encouraged to stay active at home. All of these instructions were given to the patient personally. All questions were answered and the patient understood all instructions, the instructions were also given to the patient in print. Time Spent with Patient Time attestation: Total time spent providing and/or coordinating discharge services: Discharge coordination time: Less than 30 minutes Quality: Safe Use of Opioids Does Pt have an Active Cancer Diagnosis on the Problem List?: No Quality: Stroke Does the patient have a stroke diagnosis?: No Physical Exam Vital Signs: Vital Signs: Last Vital Signs Temp 97.3 F 08/18/22 10:05 Pulse 68 08/18/22 10:05 Resp 18 08/18/22 10:05 BP 127/76 08/18/22 10:05 Pulse Ox 98 08/18/22 10:05 O2 Del Method 08/18/22 10:05 BMI result Body Mass Index 45.8 DS: Data Data Completed and Pending Pending studies at discharge: Pending at discharge 08/18/22 12:20 Surgical [PTH] Routine Labs on day of discharge: Laboratory Results - last 24 hr 08/17/22 12:54 COVID-19 (JUHI) Negative COVID-19 Clin Com See Note Discharge Plan Discharge Anticipated Discharge Date/Time: 08/19/22 10:07 Patient Disposition: Home, Self-Care Discharge Diagnosis: s/p sleeve gastrectomy Referrals: Pravin Lucero III, MD [Primary Care Provider] - 1 Week Discharge Medications: Continued pantoprazole 40 mg tablet,delayed release (DR/EC) 40 mg PO DAILY Qty: 30 2RF sucralfate 100 mg/mL suspension 10 ml PO BID Qty: 400 2RF ondansetron HCl 4 mg tablet 4 mg PO Q12H Qty: 20 0RF Discontinued cyanocobalamin (vitamin B-12) 500 mcg tablet 500 mcg PO DAILY Qty: 30 6RF cholecalciferol (vitamin D3) 50 mcg (2,000 unit) capsule 50 mcg PO DAILY Qty: 30 6RF polyethylene glycol 3350 [Miralax] 17 gram powder in packet 17 g PO DAILY Qty: 14 0RF Rx Instructions: Mix each packet with 8oz of water and do 7 packets on 08/16/22 and another 7 packets on 08/17/22 Discharge Orders: Discharge Order (Routine); Ordered 08/19/22 Ordered By: Emile Peterson Activity on Discharge: No heavy lifting Stand Alone Forms: Patient Portal Discharge page Care Plan Goals: weight loss Health Concerns: morbid obesity Plan of Treatment: No tub baths, sex or returning to work until discussed at first post op appointment. No exercise, alcohol, tobacco or illegal drug use. Continue to use incentive spirometer hourly while awake. Walk in home for 5- 10 minutes every 2 hours during the first week. Continue phase 1 diet today and start phase 2 diet tomorrow morning. Follow all instructions in the bariatric handbook and call with any questions. 1. Please call your doctor or come back to the emergency room should any new symptoms arise. 2. You will receive a courtesy call from [facility] 24-48 hours after discharge. 3. Activity: abstain from alcohol, practice limited stair climbing, no bending, no driving, no exercise, no illicit substances, no lifting, no sex, no tub bath, no work. 4. Diet: continue as discussed with bariatric team.. 5. Dressing Change/Wound Care: Do not change or remove surgical dressings unless they are wet or soiled. 6. Call your doctor if: - Your temperature exceeds 101.5 F - You experience excessive pain or swelling - You have an unexpected reaction to medication - You have excessive bleeding - You experience continued vomiting/nausea - Your incision begins to separate - Your incision shows signs of infection such as increased redness, swelling, excessive pain, heat, or drainage (light blood or clear fluid is normal) 7. General instructions: No lifting greater than 5 lbs for the next 4 weeks[address] driving within 24 hours of taking narcotic pain medications. If you do not move your bowels in the next 2 days, please take milk of magnesia over the counter. Please follow the post op diet and do not advance your diet until you are seen in the office in about 2 weeks. Please walk around your home every hour or two to prevent blood clots from forming in your legs. You do not need to wake from sleeping to walk. Please sleep in a bed or couch to prevent kinking at the hips and knees. Please take your incentive spirometer (your lung cloth checker) home with you and use it for the next few days to prevent pneumonias. You may shower, no hot tubs, baths or swimming pools. Please call the office with any questions or concerns such as increasing abdominal pain, fever, chills, shortness of breath, chest pain, leg pain or swelling, or redness or drainage from your incisions. Do not hesitate to contact the office with any questions at . The patient's medical history has been reviewed and they are considered low risk for post op DVT and therefore DVT prophylaxis is not considered necessary. Travel after surgery was reviewed. The patient has not disclosed any travel plans during the first 30 days after surgery and they have been advised that within the first 30 days after surgery any bus, plane, train or car travel over 2 hours in duration is contraindicated due to the possibility of developing blood clots from immobility. Any travel, needs to include periods of ambulation of 10 minutes in duration every 2 hours. The patient was instructed to discuss any plans for travel during this period with their bariatric surgeon. Assessment: stable post op sleeve gastrectomy
[2022-08-18] MEDS: ondansetron HCL 4 MG/2 ML VIAL IVPUSH ×2 (13:16→21:33)
[2022-08-18] MEDS: fentaNYL citrate/PF 100 MCG/2 ML VIAL 25 MCG IVPUSH ×4 (13:26→14:05)
[2022-08-18] MEDS: Metoclopramide HCl 10 MG/2 ML VIAL IVPUSH (13:32)
--- NOTE | 2022-08-18 13:49 | PHA.MEDREC ---
Pharmacy Consult ? Medication Reconciliation Pharmacy has reviewed the medication reconciliation completed by nursing. Ellen Tee, BarreraD
[2022-08-18] MEDS: Famotidine/PF 20 MG/2 ML VIAL IVPUSH ×2 (14:06→21:33)
[2022-08-18 14:09] LABS: Hematocrit 42.4 % (42.0-52.0); Hemoglobin 13.8 g/dl (14.0-18.0)
[2022-08-18 14:36] LABS: Anion Gap 15 (12-20); Blood Urea Nitrogen 8 mg/dL (9-16); Calcium 9.1 mg/dL (8.4-10.2); Carbon Dioxide 24 mmol/L (22-29); Chloride 104 mmol/L (96-108); Creatinine Clr Calc Pharmacy 184.4; Estimated Glomerular Filt Rate > 60; Glucose Random 162 mg/dL (60-115); Potassium 3.9 mmol/L (3.3-5.1); Sodium 139 mmol/L (135-145)
[2022-08-18] MEDS: ceFAZolin Sodium/Dextrose,Iso 2 GM/50 ML PIGGYBACK IV (16:04)
[2022-08-18] MEDS: Acetaminophen 1,000 MG/100 ML PIGGYBACK 16.7 MG IV ×2 (16:48→21:33)
[2022-08-18] MEDS: 0.9 % Sodium Chloride Flush 3 ML SYRINGE IVFLUSH (21:34)
[2022-08-19] MEDS: Acetaminophen 1,000 MG/100 ML PIGGYBACK 16.7 MG IV (03:28)
[2022-08-19 03:32] VITALS: BP 112/60; PULSE 70; RESP 20; TEMP 37.3; O2SAT 98
[2022-08-19] MEDS: ondansetron HCL 4 MG/2 ML VIAL IVPUSH (05:59)
[2022-08-19 06:38] LABS: MANUAL DIFF FLAG NO
[2022-08-19 06:40] LABS: Basophils Percent Auto 0.1 % (0-2); Hematocrit 39.6 % (42.0-52.0); Imm Gran Abs Auto 0.04 X10*3/uL (0.00-0.03); Imm Gran Pct Auto 0.4 % (0.0-0.4); Lymphocytes Absolute Auto 1.2 X10*3/uL (1.2-4.9); Lymphocytes Percent Auto 10.2 % (20-40); Mean Corpuscular HGB Conc 32.8 g/dl (31.0-36.0); Mean Corpuscular Hemoglobin 28.4 pg (27.0-33.0); Mean Corpuscular Volume 86.5 fL (80.0-98.0); Mean Platelet Volume 10.9 fL (9.4-12.4); Monocytes Absolute Auto 0.6 X10*3/uL (0.1-1.2); Monocytes Percent Auto 5.5 % (2-11); Neutrophils Absolute Auto 9.4 x10*3/uL (2.0-8.3); Neutrophils Percent Auto 83.8 % (45-73); Platelet Count 230 X10*3/uL (160-400); Red Blood Count 4.58 X10*6/uL (4.60-5.80); Red Cell Distribution Width 13.8 % (11.0-16.0); White Blood Count 11.2 X10*3/uL (4.8-10.8)
[2022-08-19 06:58] LABS: Anion Gap 15 (12-20); Blood Urea Nitrogen 7 mg/dL (9-16); Calcium 9.3 mg/dL (8.4-10.2); Carbon Dioxide 25 mmol/L (22-29); Chloride 104 mmol/L (96-108); Creatinine Clr Calc Pharmacy 204.9; Estimated Glomerular Filt Rate > 60; Glucose Random 102 mg/dL (60-115); Potassium 4.4 mmol/L (3.3-5.1); Sodium 140 mmol/L (135-145)
[2022-08-19] MEDS: Famotidine/PF 20 MG/2 ML VIAL IVPUSH (07:21)
[2022-08-19 07:49] VITALS: BP 107/58; PULSE 54; RESP 19; TEMP 36.7; O2SAT 95
--- NOTE | 2022-08-19 08:19 | HO.POSTANES ---
Post Anesthesia Evaluation Post Anesthesia Evaluation Vital Signs: Vital Signs Temp Pulse Resp BP Pulse Ox O2 Del Method 08/19/22 07:49 98.1 F 54 19 107/58 L 95 Room Air 08/19/22 03:32 99.1 F 70 20 112/60 98 Room Air 08/18/22 23:27 98.7 F 68 18 118/62 94 Room Air Anesthesia: General Endotracheal-GETA Mental Status: Awake Pain Control: Satisfactory Nausea/Vomiting: None Hydration: Adequate Anesthesia-Related Issues: No Anes. Related Issues
--- NOTE | 2022-08-19 08:32 | MHC.CM.PN ---
Male 32 S/P Gastric sleeve. He lives with his Mother. He is independent with all functional mobility. He is discharged today to home self care. He has arranged for family to provide transportation home.
== END 2022-08-19 09:22 | disposition home or self-care (01) | DRG 403 ==
LOC: HO.SSSA 13:09 → HO.S3 13:16
PROVIDERS: Physician Assistant; Physician Assistant Surgical; Admitting Provider Surgery; PCP Internal Medicine; Visit Provider Surgery
PROC: 0DB64Z3 Excision of Stomach, Percutaneous Endoscopic Approach, Vertical (ICD-10-PCS; CPT 43845; principal; 2022-08-18 10:50)
DX: E66.01 Morbid (severe) obesity due to excess calories (principal); K74.00 Hepatic fibrosis, unspecified; Q43.3 Congenital malformations of intestinal fixation; K76.0 Fatty (change of) liver, not elsewhere classified; Z68.41 Body mass index [BMI] 40.0-44.9, adult; Z20.822 Contact with and (suspected) exposure to COVID-19; Z79.899 Other long term (current) drug therapy
CPT/HCPCS: 36415; 80048; 80053; 80061; 83036; 83525; 84443; 85014; 85018; 85025; 85610; 85730; 86140; 86850; 86900; 86901; 87635; 88307; 88342; A4649; C9088; J0131; J0330; J0690; J1100; J1170; J2250; J2405; J2550; J2765; J2795; J3010

== ENCOUNTER → 2022-10-29 13:36 | Outpatient (BNVA) | payer BC, SELFPAY | PROVIDERS: PCP Internal Medicine; Visit Provider Physician Assistant Surgical | DX: Z13.89 Encounter for screening for other disorder (principal) ==

== ENCOUNTER 2023-01-14 09:35 | Outpatient (REF) | payer BC, SELFPAY ==
[2023-01-14 09:49] LABS: MANUAL DIFF FLAG NO
[2023-01-14 09:58] LABS: Basophils Percent Auto 0.6 % (0-2); Eosinophils Absolute Auto 0.1 X10*3/uL (0.0-0.4); Eosinophils Percent Auto 1.8 % (0-4); Hematocrit 42.9 % (42.0-52.0); Imm Gran Abs Auto 0.01 X10*3/uL (0.00-0.03); Imm Gran Pct Auto 0.2 % (0.0-0.4); Lymphocytes Absolute Auto 2.3 X10*3/uL (1.2-4.9); Mean Corpuscular HGB Conc 32.6 g/dl (31.0-36.0); Mean Corpuscular Hemoglobin 28.3 pg (27.0-33.0); Mean Corpuscular Volume 86.7 fL (80.0-98.0); Mean Platelet Volume 10.7 fL (9.4-12.4); Monocytes Absolute Auto 0.3 X10*3/uL (0.1-1.2); Monocytes Percent Auto 5.8 % (2-11); Neutrophils Absolute Auto 2.3 x10*3/uL (2.0-8.3); Neutrophils Percent Auto 45.6 % (45-73); Platelet Count 204 X10*3/uL (160-400); Red Blood Count 4.95 X10*6/uL (4.60-5.80); Red Cell Distribution Width 14.4 % (11.0-16.0)
[2023-01-14 10:22] LABS: Estimated Average Glucose 100 mg/dL; Hemoglobin A1c % 5.1 %
[2023-01-14 10:45] LABS: Alanine Aminotransferase 55 U/L (0-40); Albumin Level 4.4 g/dL (3.5-5.0); Alkaline Phosphatase 53 U/L (39-117); Anion Gap 13 (12-20); Aspartate Amino Transferase 48 U/L (5-37); Bilirubin Total 2.4 mg/dL (0.0-1.0); Blood Urea Nitrogen 9 mg/dL (9-16); C Reactive Protein < 0.10 mg/dL (< or = 0.50); Calcium 9.6 mg/dL (8.4-10.2); Carbon Dioxide 29 mmol/L (22-29); Chloride 104 mmol/L (96-108); Cholesterol 190 mg/dL; Estimated Glomerular Filt Rate > 60; Glucose Random 94 mg/dL (60-115); HDL Cholesterol 49 mg/dL; Iron 158 mcg/dL (45-160); LDL Cholesterol Calculated 123 mg/dl; Percent Iron Saturation 53 % (15-50); Potassium 4.7 mmol/L (3.3-5.1); Sodium 141 mmol/L (135-145); Total Iron Binding Capacity 298 mcg/dL (228-428); Total Protein 6.8 g/dL (6.5-8.0); Triglycerides 91 mg/dL; Unsaturated Iron Binding 140 ug/dL
[2023-01-14 11:18] LABS: Ferritin 257 ng/mL (20-250); Folate 3.2 ng/mL (> or = 4.0); Insulin 8 uU/mL (2-29); TSH reflex Free T4 0.78 uIU/mL (0.32-4.0); Vitamin B12 242 pg/mL (200-900); Vitamin D 25-OH Total 17.1 ng/mL (>30)
[2023-01-18 15:29] LABS: Calcium (PTHI) 9.8 mg/dL (8.6-10.3); PTHI 21 pg/mL (16-77)
[2023-01-20 02:04] LABS: Zinc 84 mcg/dL (60-130)
[2023-01-21 12:14] LABS: Vitamin A 36 mcg/dL (38-98)
[2023-01-21 16:24] LABS: Vitamin B1 <6 nmol/L (8-30)
== END 2023-01-14 09:36 | disposition home or self-care (01) ==
LOC: HO.LAB 09:35
PROVIDERS: PCP Internal Medicine; Visit Provider Physician Assistant Surgical
DX: K91.2 Postsurgical malabsorption, not elsewhere classified (principal); Z98.84 Bariatric surgery status
CPT/HCPCS: 36415; 80053; 80061; 82306; 82607; 82728; 82746; 83036; 83525; 83540; 83970; 84425; 84443; 84590; 84630; 85025; 86140

== ENCOUNTER → 2023-01-21 08:32 | Outpatient (BNVA) | payer BC, SELFPAY | PROVIDERS: PCP Internal Medicine; Visit Provider Physician Assistant Surgical | DX: Z13.89 Encounter for screening for other disorder (principal) ==

== ENCOUNTER 2023-03-11 11:08 | Outpatient (REF) | payer BC, SELFPAY ==
--- NOTE | ~2023-03-11 | US_ITS ---
EXAMINATION: US ABDOMEN LIMITED CLINICAL INFORMATION: Unspecified jaundice. COMPARISON: Ultrasound abdomen complete 04/10/2021. TECHNIQUE: Real-time imaging of the right upper quadrant abdominal viscera. FINDINGS: PANCREAS: The pancreas appears unremarkable, without masses or ductal dilatation, with the exception of the tail which is obscured by bowel gas. LIVER: The liver is mildly enlarged and demonstrates increased echogenicity consistent with hepatic steatosis. The liver contour is normal. There is an ill-defined area of decreased echogenicity near the brandie hepatis most likely representing focal fatty sparing. No suspicious focal hepatic lesion. There is no intrahepatic biliary duct dilatation seen. GALLBLADDER: The gallbladder is physiologically distended. Multiple mobile gallstones are present. No evidence of gallbladder wall thickening or pericholecystic fluid. COMMON BILE DUCT: Normal in caliber measuring 0.4 cm in diameter. RIGHT KIDNEY: Normal. No hydronephrosis. No renal calculi or focal parenchymal lesions. The kidney measures 10.7 cm in maximum dimension. FREE FLUID: None. US/US abdomen limited IMPRESSION: 1. Cholelithiasis without evidence of cholecystitis. 2. Enlarged fatty liver.
== END 2023-03-11 11:09 | disposition home or self-care (01) ==
LOC: HO.US 11:08
PROVIDERS: PCP Internal Medicine; Visit Provider Physician Assistant Surgical
DX: R17 Unspecified jaundice (principal); R79.89 Other specified abnormal findings of blood chemistry
CPT/HCPCS: 76705